=== PATIENT | male | born 1960 | race Caucasian/White ===

== ENCOUNTER 2016-12-26 16:26 | Emergency (ER) | payer OTHER ==
[~2016-12-26] VITALS: Ht 180.3 cm; Wt 88.5 kg
[2016-12-26] MEDS ORDERED: LORAZEPAM 1 MG TABLET ONE (16:46)
--- NOTE | 2016-12-26 16:50 | NUR ---
PT PRESENTS TO ER C/O "MULTIPLE SEIZURES TODAY; SHAKING A LOT" BUT REPORTS "MAYBE IT'S FROM ALCOHOL WITHDRAWAL". NO SEIZURE ACTIVITY OR WITHDRAWAL SYMPTOMS NOTED. SKIN WARM NONDIAPHORETIC. RESP EVEN UNLABORED. A/OX4. NAD NOTED. IN ER BED 17.
[2016-12-26 17:00] LABS: BASOPHILS % (AUTO) 0.6 % (0.0-2.0); EOSINOPHILS # (AUTO) 0.1 /CMM (0.0-0.7); EOSINOPHILS % (AUTO) 1.6 % (0.0-6.0); HEMATOCRIT 47 % (39-51); LYMPHOCYTES # (AUTO) 2.3 /CMM (0.8-4.8); MEAN CORPUSCULAR HEMOGLOBIN 31 PG (26.0-33.0); MEAN CORPUSCULAR HGB CONC 32 g/dl (31.0-36.0); MEAN CORPUSCULAR VOLUME 95 fL (80-96); MONOCYTES # (AUTO) 0.6 /CMM (0.1-1.30); MONOCYTES % (AUTO) 7.4 % (2.0-12.0); NEUTROPHILS # (AUTO) 5.2 /CMM (1.8-8.9); NEUTROPHILS % (AUTO) 62.4 % (43.0-81.0); PLATELET COUNT (AUTO) 261 /CMM (150-450); RDW COEFFICIENT OF VARIATION 13.6 (11.5-15.0); RED BLOOD CELL COUNT(AUTO) 4.93 MIL/uL (4.5-6.0); WHITE BLOOD COUNT (AUTO) 8.3 K/uL (4.3-11.0)
[2016-12-26] MEDS ORDERED: LORAZEPAM 1 MG TABLET PO ONE (17:00)
[2016-12-26 17:11] LABS: CALCIUM, SERUM 9.1 mg/dL (8.5-10.1); CARBON DIOXIDE 25 mmol/L (21-32); CHLORIDE 102 mmol/L (98-107); CREATININE 1.1 mg/dL (0.6-1.3); GFR 69 mL/min (>60); GLUCOSE 104 mg/dL (74-106); POTASSIUM 3.9 mmol/L (3.5-5.1); SODIUM SERUM 138 mmol/L (136-145); UREA NITROGEN, BLOOD 19 mg/dL (7-18)
--- NOTE | 2016-12-26 17:15 | NUR ---
PT IS MEDICALLY CLEARED BY , WILL INFORM PINKY TO EVALUATE WHEN SHE GETS HERE
[2016-12-26 17:16] LABS: ALANINE AMINOTRANSFERASE 37 U/L (12-78); ALBUMIN 3.8 g/dL (3.4-5.0); ALCOHOL, BLOOD 118 mg/dL (0-0); ALKALINE PHOSPHATASE 69 U/L (46-116); ASPARTATE AMINOTRANSFERASE 38 U/L (15-37); BILIRUBIN,DIRECT 0.1 mg/dL (0.0-0.2); BILIRUBIN,TOTAL 0.4 mg/dL (0.2-1.0); TOTAL PROTEIN, SERUM 7.8 g/dL (6.4-8.2)
[2016-12-26 17:17] LABS: ACETAMINOPHEN < 3 ug/ml (10-30); SALICYLATE < 2.0 mg/dL (2.8-20.0)
[2016-12-26 18:27] LABS: APPEARANCE,URINE Clear (CLEAR); BILIRUBIN,URINE SMALL (NEGATIVE); BLOOD, URINE Negative Ery/uL (NEGATIVE); COLOR,URINE Yellow (YELLOW); KETONES,URINE Trace (NEGATIVE); LEUKOCYTE ESTERASE ,URINE Negative (NEGATIVE); NITRITE, URINE Negative (NEGATIVE); PROTEIN,URINE 30 mg/dl (NEGATIVE); UGLUCOSE Negative (NEGATIVE); UROBILINOGEN,URINE 0.2 EU/dL (0.2)
[2016-12-26 18:38] LABS: RBC,URINE 0-2 /HPF (0-2)
[2016-12-26 18:39] LABS: ADD URINE CULTURE NO; BACTERIA,URINE Few /HPF (None Seen); CANNABINOID, URINE NEGATIVE (NEGATIVE); HYALINE CASTS, URINE Moderate /LPF (None Seen); MUCUS,URINE Many /LPF (None Seen); PHENCYCLIDINE SCREEN,URINE NEGATIVE (NEGATIVE); SQUAMOUS EPITHELIAL CELL,UR Few /HPF (None Seen)
--- NOTE | 2016-12-26 18:40 | NUR ---
RESTING QUIETLY, NAD NOTED.
--- NOTE | 2016-12-26 18:58 | NUR ---
PINKY MINE EXPLORATION ENGINEER AT BEDSIDE
--- NOTE | 2016-12-26 20:51 | NUR ---
RESTING QUIETLY, NAD NOTED.
[2016-12-26 21:18] VITALS: BP 116/68
--- NOTE | 2016-12-26 21:18 | NUR ---
ATTEMPTED TO CALL REPORT TO [facility] Addendum: 12/26/16 at 2123 by HFOX REPORT GIVEN TO PATSY HUNTLEY AT [facility] FOR TRANSFER
--- NOTE | 2016-12-26 21:44 | NUR ---
PT TRANSFERRED TO [facility] IN STABLE CONDITION VIA TAXI. NAD NOTED. TRANSFER PAPERWORK COMPLETED AND SIGNED, SENT WITH PT.
== END 2016-12-26 21:54 ==
LOC: ER 16:30
DX: R45.851 Suicidal ideations (principal); F10.10 Alcohol abuse, uncomplicated; I10 Essential (primary) hypertension; F41.9 Anxiety disorder, unspecified; F32.9 Major depressive disorder, single episode, unspecified; F17.200 Nicotine dependence, unspecified, uncomplicated; Z98.890 Other specified postprocedural states
CPT/HCPCS: 36415; 80048; 80076; 80305; 80329; 81001; 85025; 99285; A4606; G0480 ×2; Z7610; 81000-TC; G6039-TC

== ENCOUNTER 2017-01-02 15:49 | Emergency (ER) | payer OTHER ==
[~2017-01-02] VITALS: Ht 180.3 cm; Wt 88.5 kg
--- NOTE | 2017-01-02 15:55 | NUR ---
PT BIB SELF C/O SI AND DEPRESSION WITH PLAN TO OD ON ALCOHOL AND HIS MEDS. DENIES HI. NAD NOTED. DENIES PHYSICAL COMPLAINTS. IN ER BED 11.
[2017-01-02] MEDS ORDERED: LEVE500T9 PO (16:03)
[2017-01-02] MEDS ORDERED: DIAZ10TA4 PO (16:03)
[2017-01-02] MEDS ORDERED: LISI-607 PO (16:03)
[2017-01-02 16:19] LABS: BASOPHILS # (AUTO) 0.1 /CMM (0.0-0.2); BASOPHILS % (AUTO) 1.2 % (0.0-2.0); EOSINOPHILS % (AUTO) 0.3 % (0.0-6.0); HEMATOCRIT 47 % (39-51); HEMOGLOBIN 15.2 g/dL (13.5-17.5); LYMPHOCYTES # (AUTO) 1.6 /CMM (0.8-4.8); LYMPHOCYTES % (AUTO) 19.5 % (20.0-44.0); MEAN CORPUSCULAR HEMOGLOBIN 31 PG (26.0-33.0); MEAN CORPUSCULAR HGB CONC 33 g/dl (31.0-36.0); MEAN CORPUSCULAR VOLUME 94 fL (80-96); MONOCYTES # (AUTO) 0.9 /CMM (0.1-1.30); MONOCYTES % (AUTO) 10.7 % (2.0-12.0); NEUTROPHILS # (AUTO) 5.7 /CMM (1.8-8.9); NEUTROPHILS % (AUTO) 68.3 % (43.0-81.0); PLATELET COUNT (AUTO) 254 /CMM (150-450); RDW COEFFICIENT OF VARIATION 13.6 (11.5-15.0); RED BLOOD CELL COUNT(AUTO) 4.96 MIL/uL (4.5-6.0); WHITE BLOOD COUNT (AUTO) 8.3 K/uL (4.3-11.0)
[2017-01-02 16:29] LABS: APPEARANCE,URINE CLEAR (CLEAR); BILIRUBIN,URINE 1+ (NEGATIVE); BLOOD, URINE NEGATIVE Ery/uL (NEGATIVE); COLOR,URINE ORANGE (YELLOW); KETONES,URINE TRACE (NEGATIVE); LEUKOCYTE ESTERASE ,URINE NEGATIVE (NEGATIVE); NITRITE, URINE NEGATIVE (NEGATIVE); PH,URINE 6.5 (5.0-8.0); PROTEIN,URINE 1+ mg/dl (NEGATIVE); UGLUCOSE NEGATIVE (NEGATIVE)
[2017-01-02 16:40] LABS: CALCIUM, SERUM 8.6 mg/dL (8.5-10.1); CARBON DIOXIDE 30 mmol/L (21-32); CHLORIDE 100 mmol/L (98-107); CREATININE 0.9 mg/dL (0.6-1.3); GFR 88 mL/min (>60); GLUCOSE 111 mg/dL (74-106); POTASSIUM 3.3 mmol/L (3.5-5.1); SODIUM SERUM 138 mmol/L (136-145); UREA NITROGEN, BLOOD 11 mg/dL (7-18)
[2017-01-02 16:41] LABS: PHENCYCLIDINE SCREEN,URINE NEGATIVE (NEGATIVE)
[2017-01-02 16:43] LABS: CANNABINOID, URINE POSITIVE (NEGATIVE)
[2017-01-02 16:45] LABS: ADD URINE CULTURE NO; BACTERIA,URINE None seen /HPF (None Seen); RBC,URINE NONE SEEN /HPF (0-2); SQUAMOUS EPITHELIAL CELL,UR Few /HPF (None Seen); WBC,URINE 0-2 /HPF (0-3)
[2017-01-02 16:46] LABS: ACETAMINOPHEN 0 ug/ml (10-30); ALANINE AMINOTRANSFERASE 51 U/L (12-78); ALBUMIN 4.3 g/dL (3.4-5.0); ALCOHOL, BLOOD < 3 mg/dL (0-0); ALKALINE PHOSPHATASE 92 U/L (46-116); ASPARTATE AMINOTRANSFERASE 76 U/L (15-37); BILIRUBIN,DIRECT 0.2 mg/dL (0.0-0.2); BILIRUBIN,TOTAL 1.5 mg/dL (0.2-1.0); SALICYLATE 0.6 mg/dL (2.8-20.0); TOTAL PROTEIN, SERUM 8.1 g/dL (6.4-8.2)
--- NOTE | 2017-01-02 17:08 | NUR ---
CALLED PINKY; ETA 1 HR
[2017-01-02] MEDS ORDERED: LORAZEPAM 1 MG TABLET PO ONE ×2 (17:30→19:30)
[2017-01-02] MEDS ORDERED: LORAZEPAM 1 MG TABLET ONE ×2 (17:38→19:18)
--- NOTE | 2017-01-02 17:42 | NUR ---
RESTING QUIETLY, NAD NOTED. ALL NEEDS ATTENDED TO.
--- NOTE | 2017-01-02 17:44 | NUR ---
CALLED FOR FOOD TRAY
--- NOTE | 2017-01-02 19:05 | NUR ---
CALLED INTAKE AT [facility]; PER ÁLVARO, PT MUST BE TRANSPORTED BY AMBULANCE, NOT TAXI.
--- NOTE | 2017-01-02 19:08 | NUR ---
CALLED TRANSPORT ETA 30
[2017-01-02 19:10] VITALS: BP 150/104
--- NOTE | 2017-01-02 19:11 | NUR ---
REPORT GIVEN TO LORAINE HUNTLEY AT [facility] FOR TRANSFER
--- NOTE | 2017-01-02 19:43 | NUR ---
PT TRANSPORTED TO [facility] IN STABLE CONDITION. Written and verbal after care instructions given. Patient verbalizes understanding of instruction.
== END 2017-01-02 19:46 | disposition short-term general hospital (02) ==
LOC: ER 15:51
DX: R45.851 Suicidal ideations (principal); F15.10 Other stimulant abuse, uncomplicated; F32.9 Major depressive disorder, single episode, unspecified; F41.9 Anxiety disorder, unspecified; I10 Essential (primary) hypertension; F10.20 Alcohol dependence, uncomplicated; F17.210 Nicotine dependence, cigarettes, uncomplicated
CPT/HCPCS: 36415; 80048; 80076; 80305; 80329; 81001; 85025; 99285; 99406; A4606; G0480 ×2; Z7610; 81000-TC; G6039-TC

== ENCOUNTER 2017-09-23 20:47 | Emergency (ER) | payer OTHER ==
[~2017-09-23] VITALS: Ht 180.3 cm; Wt 95.3 kg
[~2017-09-23 20:47] MED LIST: DIAZ10TA4 PO; LEVE500T9 PO; LISI-607 PO
--- NOTE | 2017-09-23 21:03 | NUR ---
PT AMBULATORY TO ER BED 9. PT STATES "WAS TURNED AWAY AT [facility]; GOT ANXIOUS. HAVING SUICIDAL THOUGHTS". PT DENIES HAVING A PLAN. PT PLACED ON SEASONAL GREENERY BUNDLER. VSS/RESP EVEN UNLABORED/NAD NOTED/SKIN WARM AND DRY/DENIES N-V-D/AOX4. AWAITING MD GAR.
[2017-09-23 21:59] LABS: BASOPHILS # (AUTO) 0.1 /CMM (0.0-0.2); BASOPHILS % (AUTO) 0.8 % (0.0-2.0); EOSINOPHILS # (AUTO) 0.2 /CMM (0.0-0.7); EOSINOPHILS % (AUTO) 2.4 % (0.0-6.0); HEMATOCRIT 45 % (39-51); LYMPHOCYTES # (AUTO) 2.4 /CMM (0.8-4.8); LYMPHOCYTES % (AUTO) 24.1 % (20.0-44.0); MEAN CORPUSCULAR HEMOGLOBIN 30 PG (26.0-33.0); MEAN CORPUSCULAR HGB CONC 33 g/dl (31.0-36.0); MEAN CORPUSCULAR VOLUME 90 fL (80-96); MONOCYTES # (AUTO) 0.9 /CMM (0.1-1.30); NEUTROPHILS # (AUTO) 6.3 /CMM (1.8-8.9); NEUTROPHILS % (AUTO) 63.7 % (43.0-81.0); PLATELET COUNT (AUTO) 222 /CMM (150-450); RDW COEFFICIENT OF VARIATION 15.2 (11.5-15.0); RED BLOOD CELL COUNT(AUTO) 5.01 MIL/uL (4.5-6.0); WHITE BLOOD COUNT (AUTO) 9.9 K/uL (4.3-11.0)
[2017-09-23 22:02] LABS: CALCIUM, SERUM 9.2 mg/dL (8.5-10.1); CARBON DIOXIDE 28 mmol/L (21-32); CHLORIDE 103 mmol/L (98-107); GLUCOSE 93 mg/dL (74-106); SODIUM SERUM 139 mmol/L (136-145); UREA NITROGEN, BLOOD 22 mg/dL (7-18)
[2017-09-23 22:04] LABS: APPEARANCE,URINE CLEAR (CLEAR); BILIRUBIN,URINE NEGATIVE (NEGATIVE); BLOOD, URINE NEGATIVE Ery/uL (NEGATIVE); COLOR,URINE YELLOW (YELLOW); KETONES,URINE NEGATIVE (NEGATIVE); LEUKOCYTE ESTERASE ,URINE NEGATIVE (NEGATIVE); NITRITE, URINE NEGATIVE (NEGATIVE); PH,URINE 5.5 (5.0-8.0); PROTEIN,URINE NEGATIVE (NEGATIVE); UGLUCOSE NEGATIVE (NEGATIVE); UROBILINOGEN,URINE 0.2 EU/dL (0.2)
[2017-09-23 22:08] LABS: ACETAMINOPHEN < 2 ug/ml (10-30); ALANINE AMINOTRANSFERASE 26 U/L (12-78); ALBUMIN 3.7 g/dL (3.4-5.0); ALKALINE PHOSPHATASE 95 U/L (46-116); ASPARTATE AMINOTRANSFERASE 20 U/L (15-37); BILIRUBIN,DIRECT 0.1 mg/dL (0.0-0.2); BILIRUBIN,TOTAL 0.3 mg/dL (0.2-1.0); SALICYLATE 2.2 mg/dL (2.8-20.0); TOTAL PROTEIN, SERUM 8.1 g/dL (6.4-8.2)
[2017-09-23 22:09] LABS: ALCOHOL, BLOOD 0 mg/dL (0-0)
[2017-09-23] MEDS ORDERED: LORAZEPAM 1 MG TABLET ONE (22:48)
[2017-09-23] MEDS: LORAZEPAM 1 MG TABLET PO ONE (22:49)
--- NOTE | 2017-09-23 23:24 | NUR ---
CALLED [facility] FOR PSYCH EVAL.
--- NOTE | 2017-09-23 23:52 | NUR ---
PT GIVEN FOOD AND A DRINK. PT ALERT/ORIENTED, VSS.
--- NOTE | 2017-09-24 02:06 | NUR ---
PT RESTING QUIETLY, VSS. AROUSES TO VOICE.
--- NOTE | 2017-09-24 06:10 | NUR ---
PT RESTING QUIETLY, VSS. AROUSES TO VOICE.
--- NOTE | 2017-09-24 06:41 | NUR ---
Patient discharged to home in stable condition. Written and verbal after care instructions given. Patient verbalizes understanding of instruction. Patient ambulatory with a steady gait.
[2017-09-24 06:44] VITALS: BP 109/61
== END 2017-09-24 06:44 | disposition home or self-care (01) ==
LOC: ER 20:48
DX: F32.9 Major depressive disorder, single episode, unspecified (principal); F41.9 Anxiety disorder, unspecified; I10 Essential (primary) hypertension; F17.200 Nicotine dependence, unspecified, uncomplicated; F15.10 Other stimulant abuse, uncomplicated; F10.10 Alcohol abuse, uncomplicated; Z98.890 Other specified postprocedural states
CPT/HCPCS: 36415; 80048-TC; 80076-TC; 80305; 81000-TC; 85025-TC; A4606; G0480; Z7610

== ENCOUNTER 2017-12-19 00:32 | Emergency (ER) | payer OTHER ==
[~2017-12-19] VITALS: Ht 180.3 cm; Wt 90.7 kg
--- NOTE | 2017-12-19 00:40 | NUR ---
PT BIB RA WITH A C/O MID STERNAL CP THAT RADIATES DOWN THE RT ARM. PT IS C/O ANXIETY AND HAS A HX OF ANXIETY. PT AMBULATED TO BED #12 WITH A STEADY GAIT.
--- NOTE | 2017-12-19 01:17 | NUR ---
IV STARTED AND BLOOD DRAWN. SAMPLES SENT TO LAB.
[2017-12-19 01:27] LABS: BASOPHILS # (AUTO) 0.1 /CMM (0.0-0.2); BASOPHILS % (AUTO) 0.4 % (0.0-2.0); EOSINOPHILS % (AUTO) 0.2 % (0.0-6.0); HEMATOCRIT 50 % (39-51); HEMOGLOBIN 16.7 g/dL (13.5-17.5); LYMPHOCYTES # (AUTO) 1.8 /CMM (0.8-4.8); LYMPHOCYTES % (AUTO) 11.6 % (20.0-44.0); MEAN CORPUSCULAR HEMOGLOBIN 30 PG (26.0-33.0); MEAN CORPUSCULAR HGB CONC 34 g/dl (31.0-36.0); MEAN CORPUSCULAR VOLUME 90 fL (80-96); MONOCYTES # (AUTO) 0.7 /CMM (0.1-1.30); MONOCYTES % (AUTO) 4.7 % (2.0-12.0); NEUTROPHILS # (AUTO) 12.7 /CMM (1.8-8.9); NEUTROPHILS % (AUTO) 83.1 % (43.0-81.0); PLATELET COUNT (AUTO) 294 /CMM (150-450); RDW COEFFICIENT OF VARIATION 14.3 (11.5-15.0); RED BLOOD CELL COUNT(AUTO) 5.56 MIL/uL (4.5-6.0); WHITE BLOOD COUNT (AUTO) 15.3 K/uL (4.3-11.0)
[2017-12-19 01:42] LABS: INR 0.97 (0.87-1.13)
[2017-12-19 02:21] LABS: CALCIUM, SERUM 9.2 mg/dL (8.5-10.1); CARBON DIOXIDE 19 mmol/L (21-32); CHLORIDE 99 mmol/L (98-107); CREATININE 2.4 mg/dL (0.6-1.3); GLUCOSE 132 mg/dL (74-106); POTASSIUM 4.1 mmol/L (3.5-5.1); SODIUM SERUM 135 mmol/L (136-145); UREA NITROGEN, BLOOD 33 mg/dL (7-18)
[2017-12-19 02:29] LABS: TROPONIN I < 0.017 ng/mL (0.00-0.056)
--- NOTE | 2017-12-19 02:50 | NUR ---
Patient discharged to home in stable condition. Written and verbal after care instructions given. Patient verbalizes understanding of instruction. PT REC'D HOMELESS USP INFORMATION AND WAS TOLD HE COULD WAIT IN THE LOBBY FOR STOCK HANDLER TO COME IN. VSS. PT AMBULATED OUT WITH A STEADY GAIT. RESP EVEN AND UNLABORED.
[2017-12-19 03:07] VITALS: BP 115/65
== END 2017-12-19 02:58 | disposition home or self-care (01) ==
LOC: ER 00:33
DX: R07.89 Other chest pain (principal); F19.10 Other psychoactive substance abuse, uncomplicated; I10 Essential (primary) hypertension; F41.9 Anxiety disorder, unspecified; F32.9 Major depressive disorder, single episode, unspecified; F17.200 Nicotine dependence, unspecified, uncomplicated; Z60.2 Problems related to living alone
CPT/HCPCS: 36415; 71045-TC; 80048-TC; 80305; 84484-TC; 85025-TC; 85730-TC; A4606; G0480; Z7610

== ENCOUNTER 2018-01-02 17:24 | Emergency (ER) | payer OTHER ==
[~2018-01-02] VITALS: Ht 177.8 cm; Wt 68.0 kg
--- NOTE | 2018-01-02 19:00 | NUR ---
57-year-old Male C/O anxiety and suicidal ideation, states he want so tOD on his medication and alcohol. patient ambulated to er bed, skin warm and dry, resp even and unlabored. patient placed on court monitor. skin warm and dry, resp even and unlabored. awaiting orders from provider, will continue to monitor
[2018-01-02 19:25] LABS: CREATININE 2.8 mg/dL (0.6-1.3)
--- NOTE | 2018-01-02 19:30 | NUR ---
urine sample obtained and sent to lab
[2018-01-02 19:31] LABS: BASOPHILS # (AUTO) 0.1 /CMM (0.0-0.2); BASOPHILS % (AUTO) 0.5 % (0.0-2.0); EOSINOPHILS % (AUTO) 1.4 % (0.0-6.0); HEMATOCRIT 46 % (39-51); LYMPHOCYTES # (AUTO) 2.3 /CMM (0.8-4.8); LYMPHOCYTES % (AUTO) 15.3 % (20.0-44.0); MEAN CORPUSCULAR HGB CONC 35 g/dl (31.0-36.0); MEAN CORPUSCULAR VOLUME 90 fL (80-96); MONOCYTES # (AUTO) 0.9 /CMM (0.1-1.30); MONOCYTES % (AUTO) 6.2 % (2.0-12.0); NEUTROPHILS # (AUTO) 11.6 /CMM (1.8-8.9); NEUTROPHILS % (AUTO) 76.6 % (43.0-81.0); PLATELET COUNT (AUTO) 321 /CMM (150-450); RDW COEFFICIENT OF VARIATION 13.9 (11.5-15.0); RED BLOOD CELL COUNT(AUTO) 5.17 MIL/uL (4.5-6.0); WHITE BLOOD COUNT (AUTO) 15.1 K/uL (4.3-11.0)
[2018-01-02 19:37] LABS: ALANINE AMINOTRANSFERASE 33 U/L (12-78); ALCOHOL, BLOOD 179 mg/dL (0-0); ALKALINE PHOSPHATASE 84 U/L (46-116); ASPARTATE AMINOTRANSFERASE 27 U/L (15-37); BILIRUBIN,TOTAL 0.2 mg/dL (0.2-1.0); CARBON DIOXIDE 19 mmol/L (21-32); CHLORIDE 99 mmol/L (98-107); GLUCOSE 120 mg/dL (74-106); POTASSIUM 4.2 mmol/L (3.5-5.1); SODIUM SERUM 135 mmol/L (136-145); TOTAL PROTEIN, SERUM 8.3 g/dL (6.4-8.2); UREA NITROGEN, BLOOD 31 mg/dL (7-18)
[2018-01-02 19:39] LABS: SALICYLATE < 0.2 mg/dL (2.8-20.0)
[2018-01-02 19:40] LABS: ACETAMINOPHEN < 2 ug/ml (10-30)
[2018-01-02 19:44] LABS: CALCIUM, SERUM 9.3 mg/dL (8.5-10.1)
[2018-01-02 20:19] LABS: APPEARANCE,URINE Clear (CLEAR); BILIRUBIN,URINE Negative (NEGATIVE); BLOOD, URINE Negative Ery/uL (NEGATIVE); COLOR,URINE Yellow (YELLOW); KETONES,URINE Negative (NEGATIVE); LEUKOCYTE ESTERASE ,URINE Negative (NEGATIVE); NITRITE, URINE Negative (NEGATIVE); PROTEIN,URINE Negative (NEGATIVE); UGLUCOSE Negative (NEGATIVE); UROBILINOGEN,URINE 0.2 EU/dL (0.2)
--- NOTE | 2018-01-03 00:01 | NUR ---
patient resting in er bed, no distress noted, will continue to monitor
--- NOTE | 2018-01-03 01:42 | NUR ---
art at bed side for psych eval
[2018-01-03 02:17] VITALS: BP 135/74
== END 2018-01-03 02:36 | disposition home or self-care (01) ==
LOC: ER 17:25
DX: F10.129 Alcohol abuse with intoxication, unspecified (principal); I10 Essential (primary) hypertension; F41.9 Anxiety disorder, unspecified; F32.9 Major depressive disorder, single episode, unspecified; F17.200 Nicotine dependence, unspecified, uncomplicated; Z60.2 Problems related to living alone
CPT/HCPCS: 36415; 80048-TC; 80076-TC; 80305; 81000-TC; 85025-TC; A4606; G0480; Z7610

== ENCOUNTER 2018-05-13 16:21 | Emergency (ER) | payer OTHER ==
[~2018-05-13] VITALS: Ht 180.3 cm; Wt 99.8 kg
[2018-05-13 17:10] LABS: BASOPHILS # (AUTO) 0.1 /CMM (0.0-0.2); BASOPHILS % (AUTO) 0.8 % (0.0-2.0); EOSINOPHILS % (AUTO) 1.9 % (0.0-6.0); HEMATOCRIT 47 % (39-51); HEMOGLOBIN 15.7 g/dL (13.5-17.5); LYMPHOCYTES # (AUTO) 2.3 /CMM (0.8-4.8); LYMPHOCYTES % (AUTO) 24.7 % (20.0-44.0); MEAN CORPUSCULAR HEMOGLOBIN 30 PG (26.0-33.0); MEAN CORPUSCULAR HGB CONC 33 g/dl (31.0-36.0); MEAN CORPUSCULAR VOLUME 90 fL (80-96); MONOCYTES # (AUTO) 0.8 /CMM (0.1-1.30); MONOCYTES % (AUTO) 8.3 % (2.0-12.0); NEUTROPHILS # (AUTO) 5.9 /CMM (1.8-8.9); NEUTROPHILS % (AUTO) 64.3 % (43.0-81.0); PLATELET COUNT (AUTO) 244 /CMM (150-450); RDW COEFFICIENT OF VARIATION 13.2 (11.5-15.0); RED BLOOD CELL COUNT(AUTO) 5.29 MIL/uL (4.5-6.0); WHITE BLOOD COUNT (AUTO) 9.3 K/uL (4.3-11.0)
--- NOTE | 2018-05-13 17:10 | NUR ---
BIB RA AMBULATORY, [facility] 1 WEEK OF CONFINEMENT, STILL FEELING SUICIDAL, PLAN TO OD ON PILLS. PT STABLE CALM & COOPERATIVE @ THIS MOMENT.
[2018-05-13 17:24] LABS: ALANINE AMINOTRANSFERASE 29 U/L (12-78); ALBUMIN 4.1 g/dL (3.4-5.0); ALCOHOL, BLOOD 114 mg/dL (0-0); ALKALINE PHOSPHATASE 78 U/L (46-116); ASPARTATE AMINOTRANSFERASE 24 U/L (15-37); BILIRUBIN,DIRECT 0.1 mg/dL (0.0-0.2); BILIRUBIN,TOTAL 0.3 mg/dL (0.2-1.0); CALCIUM, SERUM 9.4 mg/dL (8.5-10.1); CARBON DIOXIDE 23 mmol/L (21-32); CHLORIDE 99 mmol/L (98-107); CREATININE 1.9 mg/dL (0.6-1.3); GLUCOSE 96 mg/dL (74-106); POTASSIUM 3.6 mmol/L (3.5-5.1); SODIUM SERUM 132 mmol/L (136-145); TOTAL PROTEIN, SERUM 8.1 g/dL (6.4-8.2); UREA NITROGEN, BLOOD 25 mg/dL (7-18)
[2018-05-13 17:25] LABS: ACETAMINOPHEN > 2 ug/ml (10-30); SALICYLATE 2.2 mg/dL (2.8-20.0)
--- NOTE | 2018-05-13 19:00 | NUR ---
Patient is resting comfortably in bed with eyes closed. Easily aroused. VSS. NAD NOTED @ THIS TIME. AWAITING EVAL WITH CRISIS TEAM.
--- NOTE | 2018-05-13 21:00 | NUR ---
MODE, CRISIS RN @ BS FOR EVAL.
[2018-05-13 22:30] LABS: APPEARANCE,URINE CLEAR (CLEAR); BILIRUBIN,URINE NEGATIVE (NEGATIVE); BLOOD, URINE NEGATIVE Ery/uL (NEGATIVE); COLOR,URINE YELLOW (YELLOW); KETONES,URINE TRACE (NEGATIVE); LEUKOCYTE ESTERASE ,URINE NEGATIVE (NEGATIVE); NITRITE, URINE NEGATIVE (NEGATIVE); PH,URINE 5.5 (5.0-8.0); PROTEIN,URINE 2+ mg/dl (NEGATIVE); UGLUCOSE NEGATIVE (NEGATIVE); UROBILINOGEN,URINE 0.2 EU/dL (0.2)
[2018-05-13 22:51] LABS: BACTERIA,URINE Moderate /HPF (None Seen); RBC,URINE 0-2 /HPF (0-2); SQUAMOUS EPITHELIAL CELL,UR Rare /HPF (None Seen); WBC,URINE 0-2 /HPF (0-3)
[2018-05-13 22:52] LABS: CALCIUM OXALATE CRYSTALS,UR Moderate /HPF (None Seen)
--- NOTE | 2018-05-13 23:03 | NUR ---
Patient is resting comfortably in bed with eyes closed. Easily aroused. VSS. AWAITING TRANSFER TO PSYCH UNIT.
--- NOTE | 2018-05-13 23:54 | NUR ---
REPORT GIVEN TO YUKO CHUN FOR ERIC.
--- NOTE | 2018-05-14 00:40 | NUR ---
RESTING WITH NO S/S OF DISTRESS NOTED. GIVEN JUICE AND SANDWICH. UPDATED OF PLAN OF CARE.
--- NOTE | 2018-05-14 01:02 | NUR ---
CALLED [facility] RUN #: [id number] ETA: [phone]
--- NOTE | 2018-05-14 01:49 | NUR ---
REPORT GIVEN TO JAZMIN/YUKO [facility].
--- NOTE | 2018-05-14 02:08 | NUR ---
REPORT GIVEN TO MANEUL/EMT MED RESPONSE.
[2018-05-14 02:09] VITALS: BP 122/69
== END 2018-05-14 02:18 ==
LOC: ER 16:22
DX: R45.851 Suicidal ideations (principal); I44.4 Left anterior fascicular block; F41.9 Anxiety disorder, unspecified; F32.9 Major depressive disorder, single episode, unspecified; F17.200 Nicotine dependence, unspecified, uncomplicated; Z98.890 Other specified postprocedural states; Z60.2 Problems related to living alone; Z79.899 Other long term (current) drug therapy
CPT/HCPCS: 36415; 80048; 80076; 80305; 80329; 81001; 85025; 87086; 93005; 99285; A4606; G0480 ×2; Z7610; 81000-TC

== ENCOUNTER 2019-01-01 16:15 | Emergency (ER) | payer OTHER ==
[~2019-01-01] VITALS: Ht 177.8 cm; Wt 95.3 kg
--- NOTE | 2019-01-01 16:23 | NUR ---
BIBRA 860 FOR SUICIDAL IDEATION WITH A PLAN TO OD WITH PILLS, PT WAS JUST DISCHARGED FROM [facility]. DENIES HI. SUICIDE PRECAUTIONS IMPLEMENTED. TO ER BED 6, MADE COMFORTABLE AND READY FOR EVAL.
[2019-01-01 16:55] LABS: BASOPHILS % (AUTO) 0.3 % (0.0-2.0); HEMATOCRIT 46 % (39-51); HEMOGLOBIN 15.5 g/dL (13.5-17.5); LYMPHOCYTES # (AUTO) 2.5 /CMM (0.8-4.8); LYMPHOCYTES % (AUTO) 28.1 % (20.0-44.0); MEAN CORPUSCULAR HGB CONC 34 g/dl (31.0-36.0); MEAN CORPUSCULAR VOLUME 93 fL (80-96); MONOCYTES # (AUTO) 0.5 /CMM (0.1-1.30); MONOCYTES % (AUTO) 5.6 % (2.0-12.0); NEUTROPHILS # (AUTO) 5.8 /CMM (1.8-8.9); PLATELET COUNT (AUTO) 243 /CMM (150-450); RED BLOOD CELL COUNT(AUTO) 4.95 MIL/uL (4.5-6.0); WHITE BLOOD COUNT (AUTO) 8.9 K/uL (4.3-11.0)
[2019-01-01 17:06] LABS: ALANINE AMINOTRANSFERASE 26 U/L (12-78); ALBUMIN 3.7 g/dL (3.4-5.0); ALCOHOL, BLOOD 209 mg/dL (0-0); ALKALINE PHOSPHATASE 83 U/L (46-116); ASPARTATE AMINOTRANSFERASE 21 U/L (15-37); BILIRUBIN,TOTAL 0.2 mg/dL (0.2-1.0); CALCIUM, SERUM 9.2 mg/dL (8.5-10.1); CARBON DIOXIDE 26 mmol/L (21-32); CHLORIDE 106 mmol/L (98-107); CREATININE 0.9 mg/dL (0.6-1.3); GLUCOSE 113 mg/dL (74-106); POTASSIUM 3.8 mmol/L (3.5-5.1); SODIUM SERUM 143 mmol/L (136-145); TOTAL PROTEIN, SERUM 7.8 g/dL (6.4-8.2); UREA NITROGEN, BLOOD 15 mg/dL (7-18)
[2019-01-01 17:12] LABS: APPEARANCE,URINE Clear (CLEAR); BILIRUBIN,URINE Negative (NEGATIVE); BLOOD, URINE Negative Ery/uL (NEGATIVE); COLOR,URINE Yellow (YELLOW); KETONES,URINE Negative (NEGATIVE); LEUKOCYTE ESTERASE ,URINE Negative (NEGATIVE); NITRITE, URINE Negative (NEGATIVE); PROTEIN,URINE Negative (NEGATIVE); UGLUCOSE Negative (NEGATIVE); UROBILINOGEN,URINE 0.2 EU/dL (0.2)
[2019-01-01 17:17] LABS: SALICYLATE 2.2 mg/dL (2.8-20.0)
[2019-01-01 17:18] LABS: ACETAMINOPHEN < 5 ug/ml (10-30)
--- NOTE | 2019-01-01 18:07 | NUR ---
Patient is resting comfortably in bed with eyes closed. Easily aroused. VSS
--- NOTE | 2019-01-01 20:46 | NUR ---
PT SLEEPING COMFORTABLY IN BED. EASILY AROUSED. NO COMPLAINTS AT THIS TIME. VSS
--- NOTE | 2019-01-01 22:31 | NUR ---
Patient is resting comfortably in bed with eyes closed. Easily aroused. VSS
--- NOTE | 2019-01-01 22:40 | NUR ---
CALLED JOHNNY HAWKINS FOR PSYCH EVAL.
--- NOTE | 2019-01-02 00:16 | NUR ---
CALLED [facility] FOR S TRANSPORT TO [facility]. ETA 0110, TRACKING NUMBER [id number]
--- NOTE | 2019-01-02 00:41 | NUR ---
REPORT [facility]AD[facility] [phone] FOR PT VOLUNTARY ADMISSION TO UNIT 1, ACCEPTED BY DR. QUEZADA. PT RESP EVEN & UNLABORED, DENIES ANY PAIN, CALM & COOPERATIVE AT THIS TIME W/ NAD NOTED. ETA AMBULNZ 0110.
--- NOTE | 2019-01-02 01:10 | NUR ---
GAVE REPORT TO LOIDA Stanley FOR TRANSPORTATION ERIC
[2019-01-02 01:24] VITALS: BP 123/70
== END 2019-01-02 01:24 ==
LOC: ER 16:19
DX: F10.129 Alcohol abuse with intoxication, unspecified (principal); R45.851 Suicidal ideations; F31.9 Bipolar disorder, unspecified; F25.9 Schizoaffective disorder, unspecified; F41.9 Anxiety disorder, unspecified; F17.200 Nicotine dependence, unspecified, uncomplicated; Y90.5 Blood alcohol level of 100-119 mg/100 ml; Z98.890 Other specified postprocedural states; Z04.6 Encounter for general psychiatric examination, requested by authority; Z60.2 Problems related to living alone
CPT/HCPCS: 36415; 80048; 80076; 80305; 80307 ×2; 80329; 81001; 85025; 99285; G0480; 81000-TC

== ENCOUNTER 2020-12-07 06:24 | Emergency (ER) | payer OTHER ==
[~2020-12-07] VITALS: Ht 180.3 cm; Wt 97.5 kg
[~2020-12-07 06:24] MED LIST changes: -LISI-607 PO; +LISI-768 PO
--- NOTE | 2020-12-07 06:31 | NUR ---
URINE COLLECTED, CALLED LAB FOR BUSINESS DEVELOPMENT DIRECTOR
--- NOTE | 2020-12-07 06:34 | NUR ---
PT BIBSELF C/O SUICIDAL IDEATION WITH PLAN TO OVERDOSE. PT AAOX4, CALM AND COOPERATIVE. VITAL SIGNS STABLE. RESPIRATIONS EVEN AND UNLABORED. SKIN WARM AND INTACT. AMBULATORY WITH STEADY GAIT. NO ACUTE DISTRESS NOTED AT THIS TIME. SUICIDAL PRECAUTIONS INITIATED. PT PLACED IN GOWN, BELONGINGS COLLECTED AND LOCKED IN PATIENT LOCKER. SITTER AT BEDSIDE. WILL CONTINUE TO MONITOR
--- NOTE | 2020-12-07 07:08 | NUR ---
MANAGER OF TRAINING AT BEDSIDE FOR BLOOD DRAW
[2020-12-07 07:31] LABS: BASOPHILS % (AUTO) 0.3 % (0.0-2.0); EOSINOPHILS % (AUTO) 0.6 % (0.0-6.0); HEMATOCRIT 45 % (39-51); HEMOGLOBIN 15.1 g/dL (13.5-17.5); LYMPHOCYTES # (AUTO) 2.4 /CMM (0.8-4.8); LYMPHOCYTES % (AUTO) 21.6 % (20.0-44.0); MEAN CORPUSCULAR HGB CONC 33 g/dl (31.0-36.0); MEAN CORPUSCULAR VOLUME 95 fL (80-96); MONOCYTES # (AUTO) 1.1 /CMM (0.1-1.30); MONOCYTES % (AUTO) 9.6 % (2.0-12.0); NEUTROPHILS # (AUTO) 7.6 /CMM (1.8-8.9); NEUTROPHILS % (AUTO) 67.9 % (43.0-81.0); PLATELET COUNT (AUTO) 210 /CMM (150-450); RED BLOOD CELL COUNT(AUTO) 4.79 MIL/uL (4.5-6.0); WHITE BLOOD COUNT (AUTO) 11.3 K/uL (4.3-11.0)
[2020-12-07 07:38] LABS: BILIRUBIN,URINE NEGATIVE (NEGATIVE); COLOR,URINE YELLOW (YELLOW); LEUKOCYTE ESTERASE ,URINE NEGATIVE (NEGATIVE); NITRITE, URINE NEGATIVE (NEGATIVE); PROTEIN,URINE NEGATIVE (NEGATIVE); UGLUCOSE NEGATIVE (NEGATIVE); UROBILINOGEN,URINE 0.2 EU/dL (0.2)
--- NOTE | 2020-12-07 08:02 | NUR ---
COVID SWAB SENT. PATIENT IS AA/OX4, BREATHING EVEN AND UNLABORED, NO SOB NOTED.
[2020-12-07 08:03] LABS: CALCIUM, SERUM 8.2 mg/dL (8.5-10.1); CARBON DIOXIDE 24 mmol/L (21-32); CHLORIDE 102 mmol/L (98-107); CREATININE 1.1 mg/dL (0.6-1.3); GLUCOSE 116 mg/dL (74-106); POTASSIUM 3.6 mmol/L (3.5-5.1); SODIUM SERUM 135 mmol/L (136-145); UREA NITROGEN, BLOOD 19 mg/dL (7-18)
[2020-12-07 08:09] LABS: ALANINE AMINOTRANSFERASE 40 U/L (12-78); ALBUMIN 3.8 g/dL (3.4-5.0); ALKALINE PHOSPHATASE 74 U/L (46-116); ASPARTATE AMINOTRANSFERASE 51 U/L (15-37); BILIRUBIN,DIRECT 0.2 mg/dL (0.0-0.2); TOTAL PROTEIN, SERUM 7.8 g/dL (6.4-8.2)
[2020-12-07 08:13] LABS: ACETAMINOPHEN < 2 ug/ml (10-30); ALCOHOL, BLOOD < 3 mg/dL (0-0)
[2020-12-07 08:45] LABS: BACTERIA,URINE Rare /HPF (None Seen); RBC,URINE NONE SEEN /HPF (0-2); SQUAMOUS EPITHELIAL CELL,UR Rare /HPF (None Seen); WBC,URINE 0-2 /HPF (0-3)
--- NOTE | 2020-12-07 11:19 | NUR ---
"SS Consult: SS Consult for Homelessness and SI with a plan. The pt. is a 60-year old male. CHRISTOS met with pt. bedside in ED. The pt. is alert & oriented x 4. The pt. appears unkempt. SW assessed SI. Pt. stated that he is actively suicidal with plan to OD on drugs and ETOH. Patient stated that he has been diagnosed with Schizoaffective disorder in the past. Pt. stated he is not on psychotropic medication at the moment. Patient stated that he currently has visual hallucinations where he sees black spots and believes he sees people walking by. CHRISTOS offered pt. voluntary psychiatric placement and pt. is agreeable. CHRISTOS assessed pt.s living situation. Pt. stated that he was living at his friends trailer. However, per pt. this friend is a Meth user. Per pt. his fiend convinced him to try Meth and Cannabinoids. Per pt. he has not slept since Sunday due to drug use. CHRISTOS provided pt. with drug addiction resources and pt. accepted them. Pt. stated that his health clinician, Matilda Butts [phone] is his support system. Pt. denies HI. Pt. is ambulatory. Pt. denies receiving financial assistance. Plan: CHRISTOS referred pt. to [facility] [[address] [place] [address] ] for inpatient psychiatric treatment. Pt. signed homeless waiver and it was placed in the pt.s chart. CHRISTOS provided pt. with the following homeless and addiction resources and pt. accepted them: Substance Abuse resources provided included: [facility] Substance Abuse Self-Helpline (SAS) ; CRI -HELP 75201 Count Includes [facility]. [place] [address] ; [facility] 65456 [facility] [address] ; [facility] Rehabilitation Program 21882 [facility] [address] ; [facility] [address] [facility] [address] ; [facility] 5207 [facility] [address] ; [facility] [address] [facility] [phone] ; [facility] Substance Abuse Helpline(SAS)-[facility] ; [facility] ; [facility] [place]; [facility] [place]; Cri-Help [place]; I-ADARP Inter Agency Drug Abuse Recovery Juan Manuel Neff; [facility] Sylst. vincent's [place]; [facility] Sylst. vincent's [place]; [facility] T[place]; [facility]. [place]; Alcoholics Anonymous -SFV; Kt-Igad-Fkzynbt ; Marijuana Anonymous -SFV; Narcotics Anonymous www.na.org; Year-round shelters: [place] [facility] [address] [place], [place] [phone] ; [facility] [address] [place] [address]; [facility] Qwgpkgc1323 [facility] [address] Winter Shelters: Aliya Jj Provider: [employer] [facility] [place] Address: [address] [place], [address] # of Beds: 47 Population Served: [facility] 6 | [facility] Jenniffer Grace Kempner Provider: Home at Last Address: [address], [address] # of Beds: 66 Population Served: Per Webshoz Kempner Provider: First to Serve Address: [address] [facility], [address] # of Beds: 56 Population Served: Per Jj Provider: SSClaritza/MsJorgito Marie[facility] House Address: [address] [facility], [address] # of Beds: 49 Population Served: Coed SPA 8 | [place] Carmen Jj Provider: First to Serve Address: [address] [place], [address] # of Beds: 37 Population Served: Coed Hygiene: [facility]: [address] [place] ; [facility] [address] [facility] ; [facility] [address], [place] . Food Resources: [place] [facility] at [facility]- 5702 [facility]; Meet Each Need with Dignity ([facility]) [address] [facility]; [facility] Food Pantry 8591 [facility]; [facility] 7728 [facility] Er. Mental Health resources provided: [facility] [address] [place], [place] [address] ; [facility] Mental Health Cedar[employer] Inc[employer] [address]188 [facility] UN[address] 2, [place], [place] [phone] ; [facility] [address]56 [facility] [place], [place] [phone] ; [facility] [place], [place] [phone] Healthcare Clinics: [facility] [address] [facility], [address] [place]. [place] ; [facility] Clinic [address] [facility] [address] [place] [address]; [facility] 10075 [facility]. [place] [address]289 [phone]) [phone] Counseling--[facility]patient [facility] [address] [facility], [place] [address] (Specializes in in-depth psychotherapy for emotional distress: anxiety, depression, interpersonal conflicts, life transitions, childhood abuse) [facility] [address] [place] [address] (Assist with solving problem marital difficulties, separation & divorce, aging parents, & grief, chronic & terminal illness) [facility] [address] [place] [address] (Deal with loss & grief, anxiety, marital difficulties) Homebound/Mental Health Services [address], [address] [place], [place] [address] (Provide in-home mental services to people who are incapable of leaving their homes) Organization for Needs of the Elderly Senior Service/Resource Center [address] [place] [address] [facility] [address]. [place], [place] [phone] PSYCHIATRIC OUTPATIENT SERVICES [facility] Partial Hospitalization and Intensive Outpatient Program (Managed Care and Pearl Only)[address]. [facility] [phone] [facility] Partial Hospitalization and Outpatient [id number] [address] [place], [place] [phone] [facility] Partial Hospitalization and Outpatient [id number] [place] Aishwarya [facility]. [place], [place] [phone] [facility] Health Center Pnd[address] [place], [place] [phone] [facility] Partial Hospitalization and Outpatient [id number] Emelita [facility] Juan Manuel Neff [phone] "
--- NOTE | 2020-12-07 13:37 | NUR ---
PATIENT ACCEPTED AT [facility], UNDER DR. MEJIA. REPORT TO BE GIVEN AT [phone] UNIT 2.
--- NOTE | 2020-12-07 13:41 | NUR ---
[facility] [id number] [phone] ABEBA WILL CALL WITH TRANSPORT INFO REF#[id number]
[2020-12-07 13:42] VITALS: BP 130/75
--- NOTE | 2020-12-07 13:59 | NUR ---
[facility] ETA 144
[2020-12-07] MEDS ORDERED: LORAZEPAM 1 MG TABLET PO ONE (14:00)
[2020-12-07] MEDS ORDERED: LORAZEPAM 1 MG TABLET ONE (14:12)
--- NOTE | 2020-12-07 14:46 | NUR ---
REPORT GIVEN TO JUSTINA HUNTLEY AT [facility].
--- NOTE | 2020-12-07 15:24 | NUR ---
REPORT GIVEN TO CRITICAL CARE PHYSICIAN ASSISTANT, PATIENT WILL BE TRANSFERRED TO [facility] IN STABLE CONDITION. BELONGINGS GIVEN TO PATIENT.
== END 2020-12-07 15:25 ==
LOC: ER 06:24
DX: R45.851 Suicidal ideations (principal); F25.0 Schizoaffective disorder, bipolar type; F41.9 Anxiety disorder, unspecified; Z79.899 Other long term (current) drug therapy; Z87.820 Personal history of traumatic brain injury; Z20.822 Contact with and (suspected) exposure to COVID-19
CPT/HCPCS: 36415; 80048; 80076; 80299; 80307; 80320; 81001; 85025; 87426; 99285; C9803; G0480

== ENCOUNTER 2020-12-14 19:39 | Emergency (ER) | payer OTHER ==
[~2020-12-14] VITALS: Ht 180.3 cm; Wt 99.8 kg
--- NOTE | 2020-12-14 20:10 | NUR ---
BIBSELF C/O NONRADIATING MIDSTERNAL CHEST PAIN X 3 HRS RHEUMATOLOGY NURSE. AND +SI PLAN TO OVERDOSE -HI. PT AOX4 RR EVEN AND UNLABROED. NO SOB NOTED. PT NOT DIAPHORETIC. NO ACUTE DISTRESS NOTED. PT STATES +SI PLAN TO OVERDOSE; - HI. PT WAITING FOR MD GAR.
--- NOTE | 2020-12-14 20:11 | NUR ---
URINE COLLECTED. SENT TO LAB
--- NOTE | 2020-12-14 20:21 | NUR ---
LAB WITH PT FOR BLOOD DRAW
[2020-12-14 20:49] LABS: BASOPHILS # (AUTO) 0.1 /CMM (0.0-0.2); EOSINOPHILS % (AUTO) 3.4 % (0.0-6.0); HEMATOCRIT 48 % (39-51); HEMOGLOBIN 15.8 g/dL (13.5-17.5); LYMPHOCYTES # (AUTO) 3.5 /CMM (0.8-4.8); MEAN CORPUSCULAR HGB CONC 33 g/dl (31.0-36.0); MEAN CORPUSCULAR VOLUME 99 fL (80-96); MONOCYTES # (AUTO) 0.9 /CMM (0.1-1.30); MONOCYTES % (AUTO) 9.9 % (2.0-12.0); NEUTROPHILS # (AUTO) 4.6 /CMM (1.8-8.9); NEUTROPHILS % (AUTO) 48.7 % (43.0-81.0); PLATELET COUNT (AUTO) 282 /CMM (150-450); WHITE BLOOD COUNT (AUTO) 9.5 K/uL (4.3-11.0)
[2020-12-14 21:06] LABS: ALANINE AMINOTRANSFERASE < 6 U/L (12-78); ALKALINE PHOSPHATASE 80 U/L (46-116); ASPARTATE AMINOTRANSFERASE 53 U/L (15-37); BILIRUBIN,TOTAL 0.2 mg/dL (0.2-1.0); CALCIUM, SERUM 9.4 mg/dL (8.5-10.1); CARBON DIOXIDE 22 mmol/L (21-32); CHLORIDE 104 mmol/L (98-107); CREATININE 0.9 mg/dL (0.6-1.3); GLUCOSE 136 mg/dL (74-106); POTASSIUM 4.2 mmol/L (3.5-5.1); SODIUM SERUM 138 mmol/L (136-145); TOTAL PROTEIN, SERUM 8.3 g/dL (6.4-8.2); UREA NITROGEN, BLOOD 15 mg/dL (7-18)
[2020-12-14 21:19] LABS: ACETAMINOPHEN < 0 ug/ml (10-30); ALCOHOL, BLOOD < 3 mg/dL (0-0)
--- NOTE | 2020-12-14 21:21 | NUR ---
LAB CALLED REGARDING NEGATIVE COVID RESULT.
[2020-12-14 21:30] LABS: ALBUMIN < 0.6 g/dL (3.4-5.0)
[2020-12-14 22:09] LABS: BILIRUBIN,URINE NEGATIVE (NEGATIVE); COLOR,URINE YELLOW (YELLOW); LEUKOCYTE ESTERASE ,URINE NEGATIVE (NEGATIVE); NITRITE, URINE NEGATIVE (NEGATIVE); PROTEIN,URINE NEGATIVE (NEGATIVE); UGLUCOSE NEGATIVE (NEGATIVE); UROBILINOGEN,URINE 0.2 EU/dL (0.2)
--- NOTE | 2020-12-14 23:11 | NUR ---
CLINICAL AND FACESHEET FAXED TO [facility] INTAKE FOR VOLUNTARY PSYCH ADMISSION.
--- NOTE | 2020-12-15 03:25 | NUR ---
TRANSFER INFORMATION: PT ACCEPTED AT [facility] ACCEPTING MD DEE/DAVEY PHONE# FOR REPORT EXT [phone]
--- NOTE | 2020-12-15 04:04 | NUR ---
[id number] CALLED FOR TRANSPORT [facility]
[2020-12-15 04:56] VITALS: BP 133/83
--- NOTE | 2020-12-15 04:57 | NUR ---
[facility] TRANSPORT AT BEDSIDE REPORT GIVEN TO EMT TRANSPORT.
--- NOTE | 2020-12-15 05:02 | NUR ---
REPORT GIVEN TO SANDER HUNTLEY FOR ERIC
== END 2020-12-15 05:18 ==
LOC: ER 19:42
DX: R45.851 Suicidal ideations (principal); R07.9 Chest pain, unspecified; F25.0 Schizoaffective disorder, bipolar type; F41.9 Anxiety disorder, unspecified; Z59.0 Homelessness; I49.3 Ventricular premature depolarization; R00.0 Tachycardia, unspecified
CPT/HCPCS: 36415; 71045; 80048; 80076; 80299; 80307; 80320; 81003; 84484; 85025; 87426; 93005; 99285; C9803; G0480

== ENCOUNTER 2021-01-11 14:51 | Emergency (ER) | payer OTHER ==
[~2021-01-11] VITALS: Ht 180.3 cm; Wt 99.8 kg
--- NOTE | 2021-01-11 14:51 | NUR ---
PT BIB SELF C/O SUICIDAL IDEATION "I WANT TO OD ON PILLS AND ALCOHOL" PT IS AAOX4, NOT IN RESPIRATORY DISTRESS, V/S STABLE, KEPT RESTED AND COMFORTABLE. SITTER AT BEDSIDE. WILL CONTINUE TO MONITOR.
--- NOTE | 2021-01-11 15:01 | NUR ---
SEEN AND EXAMINED BY .
[2021-01-11 15:53] LABS: BASOPHILS % (AUTO) 0.4 % (0.0-2.0); EOSINOPHILS % (AUTO) 1.5 % (0.0-6.0); HEMATOCRIT 47 % (39-51); HEMOGLOBIN 15.3 g/dL (13.5-17.5); LYMPHOCYTES % (AUTO) 18.4 % (20.0-44.0); MEAN CORPUSCULAR HGB CONC 33 g/dl (31.0-36.0); MEAN CORPUSCULAR VOLUME 98 fL (80-96); MONOCYTES # (AUTO) 0.8 /CMM (0.1-1.30); MONOCYTES % (AUTO) 7.5 % (2.0-12.0); NEUTROPHILS # (AUTO) 7.9 /CMM (1.8-8.9); NEUTROPHILS % (AUTO) 72.2 % (43.0-81.0); PLATELET COUNT (AUTO) 255 /CMM (150-450); RED BLOOD CELL COUNT(AUTO) 4.75 MIL/uL (4.5-6.0); WHITE BLOOD COUNT (AUTO) 10.9 K/uL (4.3-11.0)
[2021-01-11 16:06] LABS: ALANINE AMINOTRANSFERASE 36 U/L (12-78); ALBUMIN 3.8 g/dL (3.4-5.0); ALCOHOL, BLOOD < 3 mg/dL (0-0); ALKALINE PHOSPHATASE 98 U/L (46-116); ASPARTATE AMINOTRANSFERASE 27 U/L (15-37); BILIRUBIN,DIRECT 0.1 mg/dL (0.0-0.2); BILIRUBIN,TOTAL 0.3 mg/dL (0.2-1.0); CALCIUM, SERUM 9.9 mg/dL (8.5-10.1); CARBON DIOXIDE 26 mmol/L (21-32); CHLORIDE 101 mmol/L (98-107); GLUCOSE 100 mg/dL (74-106); POTASSIUM 4.5 mmol/L (3.5-5.1); SODIUM SERUM 138 mmol/L (136-145); TOTAL PROTEIN, SERUM 8.6 g/dL (6.4-8.2); UREA NITROGEN, BLOOD 18 mg/dL (7-18)
[2021-01-11 16:20] LABS: ACETAMINOPHEN < 0 ug/ml (10-30)
--- NOTE | 2021-01-11 16:27 | NUR ---
"SS Consult: SS Consult requested for SI w /plan & homelessness. The pt. is a 60 year old male. Per pt. he is having SI with plan to OD on drugs & ETOH since 2 days ago. Pt. is A&O X 4. Pt.s mood is depressed and makes appropriate eye contact. Per pt. he has been diagnosed with Schizoaffective disorder and is not on psychotropic medication at this time. Per pt. he has been experiencing homelessness since 2018. Per pt. he has a therapist, Matilda Butts who he speaks with on a weekly basis. Per pt., h receives food stamps, and GR. SW offered pt. voluntary psych placement for Tx. an pt. is agreeable. Plan: SW referred pt. to [facility] [[address] [place] [address] ] for inpatient psychiatric treatment. Patient signed homeless waiver & it was placed in the pt.s chart. CHRISTOS provided pt. with the following homeless resources, addiction resources & mental health resources & pt. accepted them: Substance Abuse resources provided included: [facility] Substance Abuse Self-Helpline ([facility]) ; CRI -HELP [address]32 [facility]. [place] [address] ; [facility] 99520 [facility] [address] ; [facility] Rehabilitation Program [address]164 [facility] [address] ; [facility] 400 [facility] [address] ; [facility] 4940 [facility] [address] ; [facility] 909 [facility] [address] ; [facility] Substance Abuse Helpline([facility] ; [facility] ; [facility] [place]; [facility] [place]; Cri-Help [place]; I-ADARP Inter Agency Drug Abuse Recovery Juan Manuel Neff; [facility]; [facility] Vera; [facility] [place]; [facility], [facility]. [facility]; Alcoholics Anonymous -SFV; Dk-Wmhm-Zrkxnps ; Marijuana Anonymous -SFV; Narcotics Anonymous www.na.org; Year-round shelters: [place] [address] [place], [place] [address] ; [facility] [facility] [place] [address] [place] [address]; [facility] Qvvflld0243 [facility] [address] Winter Shelters: [facility] Provider: [employer] [facility] [place] Address: [address] [place], [address] # of Beds: 47 Population Served: [facility] 6 | [facility] Jenniffer Grace Soldier Provider: Home at Last Address: [address], [address] # of Beds: 66 Population Served: [facility] TwtBks Soldier Provider: First to Serve Address: 22979 [facility], [address] # of Beds: 56 Population Served: [facility] Marcello Mercado [place] Provider: SSG/Ms. Marte House Address: [address] [facility], [address] # of Beds: 49 Population Served: [facility] 8 | [facility] Provider: First to Serve Address: [address] [facility], [address] # of Beds: 37 Population Served: [facility] Hygiene: [facility] [place] [facility]: [address] Van Dynebhupendra Leroy [place] ; [facility] Hospital[facility] [address] [place] ; [facility] [address], [place] . Food Resources: [place] [facility] at [facility]- [address]. [place]; Meet Each Need with Dignity ([facility]) [address]489 [facility] Hospital[facility]org[facility] [place]; [facility] Food Pantry 2160 [facility]; [facility] 3582 [facility]. Mental Health resources provided: [facility] [address] [place] [address] ; [facility] Mental Health Center, Inc. [address] [facility] UN[address] 2, [place], [place] [address] ; [facility] Urgent Care Center [address] [place] [address] ; [facility] [address] [place], [place] [phone] Healthcare Clinics: [facility] 6551 [facility], [address] [place]. [place] ; [facility] Clinic [address] [facility] [address] [place] [address]; [facility] [address] [facility] [address] [phone]) [phone] Counseling--Outpatient [facility] 44[address] [facility], [place] [address] (Specializes in in-depth psychotherapy for emotional distress: anxiety, depression, interpersonal conflicts, life transitions, childhood abuse) [facility] [address] [place] [address] (Assist with solving problem marital difficulties, separation & divorce, aging parents, & grief, chronic & terminal illness) [facility] [address] [place] [address] (Deal with loss & grief, anxiety, marital difficulties) Homebound/Mental Health Services [address], [address] [place] [address] (Provide in-home mental services to people who are incapable of leaving their homes) Organization for Needs of the Elderly Senior Service/Resource Center [address] [place], [place] [phone] [facility] [address] SharmaJorgito [place]ullen [place] [phone] PSYCHIATRIC OUTPATIENT SERVICES [facility] Partial Hospitalization and Intensive Outpatient Program (Managed Care and Gates Only)17983 [place] TimboWellstar [facility] [phone] [facility] Partial Hospitalization and Outpatient [id number] [place], [place] [phone] [facility] Partial Hospitalization and Outpatient [id number] Juan Manuel CulverJorgito [place], [place] [phone] JUAN MANUEL ISHAN [facility] Mental Health [place] Srp[address] [place], [place] [phone] [facility] Juan Manuel Neff Partial Hospitalization and Outpatient [id number] [facility] EMELIA [phone] "
[2021-01-11 17:32] LABS: BILIRUBIN,URINE Negative (NEGATIVE); COLOR,URINE YELLOW (YELLOW); LEUKOCYTE ESTERASE ,URINE Negative (NEGATIVE); NITRITE, URINE Negative (NEGATIVE); PH,URINE 5.5 (5.0-8.0); PROTEIN,URINE 30 mg/dl (NEGATIVE); UGLUCOSE Negative (NEGATIVE); UROBILINOGEN,URINE 0.2 EU/dL (0.2)
[2021-01-11 17:36] LABS: BACTERIA,URINE Rare /HPF (None Seen); RBC,URINE NONE SEEN /HPF (0-2); SQUAMOUS EPITHELIAL CELL,UR Few /HPF (None Seen); WBC,URINE NONE SEEN /HPF (0-3)
--- NOTE | 2021-01-11 22:12 | NUR ---
TRANSFER INFO: [facility] ACCEPT[facility] BY DR FLOWERS/GINA, RN FOR REPORT [phone] EXT [phone]
--- NOTE | 2021-01-11 22:18 | NUR ---
[id number] BLS RES#[id number], ETA TO FOLLOW
--- NOTE | 2021-01-11 22:20 | NUR ---
[facility] ETA [phone]
--- NOTE | 2021-01-11 22:34 | NUR ---
REPORT GIVEN TO YUKO LEE FOR CONTINUITY OF CARE.
--- NOTE | 2021-01-12 00:32 | NUR ---
EXT [phone]
--- NOTE | 2021-01-12 01:00 | NUR ---
REPORT GIVEN TO [facility] FOR ERIC
[2021-01-12 01:05] VITALS: BP 117/80
--- NOTE | 2021-01-12 01:05 | NUR ---
PT TRANSFERRED TO [facility] IN STABLE CONDITION
== END 2021-01-12 01:08 ==
LOC: ER 14:51
DX: R45.851 Suicidal ideations (principal); F17.200 Nicotine dependence, unspecified, uncomplicated; F25.0 Schizoaffective disorder, bipolar type; F41.9 Anxiety disorder, unspecified; Z87.820 Personal history of traumatic brain injury; Z20.822 Contact with and (suspected) exposure to COVID-19; Z59.0 Homelessness
CPT/HCPCS: 36415; 80048; 80076; 80299; 80307; 80320; 81001; 85025; 87426; 99285; C9803; G0480

== ENCOUNTER 2021-01-25 19:25 | Emergency (ER) | payer OTHER ==
[~2021-01-25] VITALS: Ht 180.3 cm; Wt 99.8 kg
--- NOTE | 2021-01-25 19:25 | NUR ---
TO ER BED C/O SI WITH PLAN TO OD ON PILLS AND ALCOHOL. PT DENIES HI REQUESTING VOLUNTARY ADMISSION TO [facility]. PT AAOX4 NO ACUTE DISTRESS NOTED, RESP EVEN AND UNLABORED. PT CALM AND COOPERATIVE AT THIS TIME. [facility] ER MD GAR.
--- NOTE | 2021-01-25 19:35 | NUR ---
URINE SAMPLE COLLECTED AND SENT TO LAB.
--- NOTE | 2021-01-25 19:58 | NUR ---
GENERATING STATION MECHANIC AT BEDSIDE FOR BLOOD DRAW.
[2021-01-25 20:16] LABS: BASOPHILS % (AUTO) 0.8 % (0.0-2.0); EOSINOPHILS % (AUTO) 3.3 % (0.0-6.0); HEMATOCRIT 43 % (39-51); HEMOGLOBIN 14.5 g/dL (13.5-17.5); LYMPHOCYTES # (AUTO) 1.9 /CMM (0.8-4.8); LYMPHOCYTES % (AUTO) 31.9 % (20.0-44.0); MEAN CORPUSCULAR HGB CONC 34 g/dl (31.0-36.0); MEAN CORPUSCULAR VOLUME 96 fL (80-96); MONOCYTES # (AUTO) 0.7 /CMM (0.1-1.30); MONOCYTES % (AUTO) 11.2 % (2.0-12.0); NEUTROPHILS # (AUTO) 3.2 /CMM (1.8-8.9); NEUTROPHILS % (AUTO) 52.8 % (43.0-81.0); PLATELET COUNT (AUTO) 182 /CMM (150-450); RED BLOOD CELL COUNT(AUTO) 4.53 MIL/uL (4.5-6.0)
[2021-01-25 20:19] LABS: BILIRUBIN,URINE Negative (NEGATIVE); COLOR,URINE YELLOW (YELLOW); LEUKOCYTE ESTERASE ,URINE Negative (NEGATIVE); NITRITE, URINE Negative (NEGATIVE); PH,URINE 5.5 (5.0-8.0); PROTEIN,URINE 100 mg/dl (NEGATIVE); UGLUCOSE Negative (NEGATIVE); UROBILINOGEN,URINE 0.2 EU/dL (0.2)
[2021-01-25 20:26] LABS: CALCIUM, SERUM 9.4 mg/dL (8.5-10.1); CARBON DIOXIDE 27 mmol/L (21-32); CHLORIDE 101 mmol/L (98-107); GLUCOSE 97 mg/dL (74-106); POTASSIUM 4.2 mmol/L (3.5-5.1); SODIUM SERUM 137 mmol/L (136-145); UREA NITROGEN, BLOOD 19 mg/dL (7-18)
[2021-01-25 20:32] LABS: ALANINE AMINOTRANSFERASE 37 U/L (12-78); ALCOHOL, BLOOD < 3 mg/dL (0-0); ALKALINE PHOSPHATASE 90 U/L (46-116); ASPARTATE AMINOTRANSFERASE 29 U/L (15-37); BILIRUBIN,DIRECT 0.1 mg/dL (0.0-0.2); BILIRUBIN,TOTAL 0.4 mg/dL (0.2-1.0); TOTAL PROTEIN, SERUM 8.1 g/dL (6.4-8.2)
[2021-01-25 20:33] LABS: BACTERIA,URINE Rare /HPF (None Seen); SQUAMOUS EPITHELIAL CELL,UR Few /HPF (None Seen); WBC,URINE NONE SEEN /HPF (0-3)
[2021-01-25 20:35] LABS: ACETAMINOPHEN < 2 ug/ml (10-30)
--- NOTE | 2021-01-25 21:23 | NUR ---
CLINICAL AND FACESHEET FAXED TO [facility] INTAKE FOR VOLUNTARY PSYCH ADMISSION.
--- NOTE | 2021-01-25 23:52 | NUR ---
PT GOT ACEPTED AT [facility] BY DR MEJIA IN UNIT 1. PLEASE ARRANGE TRANSPORTATION AFTER 2AM.
--- NOTE | 2021-01-26 00:39 | NUR ---
PER [id number] DISPATCH UNABLE TO ARRANGE TRANSPORT AT THIS TIME DUE TO SYSTEM IS DOWN AND WILL ARRANGE TRANSPORT WHEN SYSTEM COMES BACK UP IN 1 HOUR.
--- NOTE | 2021-01-26 02:05 | NUR ---
PER CALL THE CAR DISPATCH, SYSTEM STILL DOWN AT THIS TIME
--- NOTE | 2021-01-26 02:41 | NUR ---
TRANSPORT CALLED ([facility]) 75-90MIN ETA.
--- NOTE | 2021-01-26 03:08 | NUR ---
PT ASLEEP, NO ACUTE DISTRESS NOTED, RESP EVEN AND UNLABORED. CALL LIGHT WIHTIN REACH. WILL CONTINUE TO MONITOR PT. 1:1 SITTER AT BEDSIDE FOR PT SAFETY.
[2021-01-26 03:20] VITALS: BP 136/82
--- NOTE | 2021-01-26 03:57 | NUR ---
REPORT CALLED TO DOMENICO DIEGO.
== END 2021-01-26 04:00 ==
LOC: ER 19:30
DX: R45.851 Suicidal ideations (principal); Z20.822 Contact with and (suspected) exposure to COVID-19; G40.909 Epilepsy, unspecified, not intractable, without status epilepticus; Z79.899 Other long term (current) drug therapy; F25.0 Schizoaffective disorder, bipolar type; F41.9 Anxiety disorder, unspecified; Z87.820 Personal history of traumatic brain injury
CPT/HCPCS: 36415; 80048; 80076; 80143; 80307; 80320; 81001; 85025; 87426; 99285; C9803; G0480

== ENCOUNTER 2021-02-03 13:47 | Emergency (ER) | payer OTHER ==
[~2021-02-03] VITALS: Ht 180.3 cm; Wt 99.8 kg
--- NOTE | 2021-02-03 14:09 | NUR ---
+SI, no specific plan, voluntary admission to [facility]. Patient a/ox4, breathing even and unlabored, no sob noted, changed into a gown. Sitter at bedside for safety. Called security for wanding.
[2021-02-03] MEDS ORDERED: LORAZEPAM 1 MG TABLET ONE (14:21)
[2021-02-03] MEDS ORDERED: LORAZEPAM 1 MG TABLET PO ONE (14:30)
[2021-02-03 14:53] LABS: BASOPHILS % (AUTO) 0.4 % (0.0-2.0); EOSINOPHILS % (AUTO) 0.4 % (0.0-6.0); HEMATOCRIT 44 % (39-51); HEMOGLOBIN 14.7 g/dL (13.5-17.5); LYMPHOCYTES # (AUTO) 2.3 /CMM (0.8-4.8); LYMPHOCYTES % (AUTO) 28.9 % (20.0-44.0); MEAN CORPUSCULAR HGB CONC 34 g/dl (31.0-36.0); MEAN CORPUSCULAR VOLUME 96 fL (80-96); MONOCYTES # (AUTO) 1.2 /CMM (0.1-1.30); MONOCYTES % (AUTO) 14.8 % (2.0-12.0); NEUTROPHILS # (AUTO) 4.4 /CMM (1.8-8.9); NEUTROPHILS % (AUTO) 55.5 % (43.0-81.0); PLATELET COUNT (AUTO) 229 /CMM (150-450); RED BLOOD CELL COUNT(AUTO) 4.55 MIL/uL (4.5-6.0); WHITE BLOOD COUNT (AUTO) 7.9 K/uL (4.3-11.0)
[2021-02-03 15:02] LABS: CALCIUM, SERUM 8.9 mg/dL (8.5-10.1); CARBON DIOXIDE 19 mmol/L (21-32); CHLORIDE 97 mmol/L (98-107); CREATININE 1.1 mg/dL (0.6-1.3); GLUCOSE 124 mg/dL (74-106); POTASSIUM 3.7 mmol/L (3.5-5.1); SODIUM SERUM 133 mmol/L (136-145); UREA NITROGEN, BLOOD 20 mg/dL (7-18)
[2021-02-03 15:09] LABS: ALANINE AMINOTRANSFERASE 47 U/L (12-78); ALCOHOL, BLOOD 6 mg/dL (0-0); ALKALINE PHOSPHATASE 98 U/L (46-116); ASPARTATE AMINOTRANSFERASE 55 U/L (15-37); BILIRUBIN,DIRECT 0.3 mg/dL (0.0-0.2); BILIRUBIN,TOTAL 1.2 mg/dL (0.2-1.0); TOTAL PROTEIN, SERUM 8.7 g/dL (6.4-8.2)
[2021-02-03 15:12] LABS: ACETAMINOPHEN < 2 ug/ml (10-30)
[2021-02-03 15:34] LABS: BILIRUBIN,URINE SMALL (NEGATIVE); COLOR,URINE DARK YELLOW (YELLOW); LEUKOCYTE ESTERASE ,URINE Negative (NEGATIVE); NITRITE, URINE Negative (NEGATIVE); PROTEIN,URINE 30 mg/dl (NEGATIVE); UGLUCOSE Negative (NEGATIVE)
[2021-02-03 15:40] LABS: BACTERIA,URINE None seen /HPF (None Seen); MUCUS,URINE Few /LPF (None Seen); RBC,URINE 0-2 /HPF (0-2); SQUAMOUS EPITHELIAL CELL,UR Few /HPF (None Seen); URINE AMORPHOUS URATE Few /HPF (None Seen); WBC,URINE 0-2 /HPF (0-3)
--- NOTE | 2021-02-03 15:55 | NUR ---
SS Consult: SS Consult requested for SI & Homelessness. The pt. is 60 year old male who presents to the ED with C/O SI w/plan to "OD on pills and alcohol". The pt. appears disheveled, face flushed A&O X4 and makes good eye contact. Pt.'s mood is depressed with distressed affect. The pt. stated SI began a few days ago. Pt. states he has a Hx. of Schizoaffective Disorder and is not currently on any psychotropic medications. Pt. states he is experiencing homeless. Pt. states he gets assistance from [employer] for meals, showers etc. Pt. states he receives food stamps, and GR. Pt. denies HI and denies hallucinations. Per pt. he drinks 1 bottle of wine about 3 x /week and uses Meth with friends. CHRISTOS offered pt. voluntary admission at a psychiatric hospital for treatment and pt. is agreeable. Plan: CHRISTOS referred pt. to [facility] [[address] [place] [address] FAX:[phone]] for inpatient psychiatric treatment. Patient signed homeless waiver & it was placed in the pt.'s chart. CHRISTOS provided pt. with the following homeless resources and pt. accepted them: Substance Abuse resources provided included: [facility] Substance Abuse Self-Helpline ([facility]) ; CRI -HELP [address] [facility]. [place] [address] ; [facility] [address] [facility] [address] ; 5min [facility], [place] [facility] [address] [facility] [address] ; [facility] [address] [facility] [address] ; [facility] 4940 [facility] [address] ; [facility] [address] [facility] [phone] ; [facility] Substance Abuse Helpline([facility] [place] ; [facility] ; [facility]; [facility] [place]; [facility] [place]; [facility] Juan Manuel Neff; [facility] [place]; [facility] [place]; [facility]; [facility]'s [facility] Romulo Jj; Alcoholics Anonymous -SFV; Pj-Ufwa-[place] ; Marijuana Anonymous -SFV; Narcotics Anonymous www.na.org; Year-round shelters: [place] [address] [place], [place] [phone] ; [facility] [place] [address] [place] [address]; [facility] Bmoxsls2300 [facility] [address] Winter Shelters: Aliya Jj Provider: [employer] [facility] [place] Address: [address] [place], [address] # of Beds: 47 Population Served: [facility] 6 | [facility] Jenniffer Grace [place] Provider: Home at Last Address: [address], [address] # of Beds: 66 Population Served: [facility] Wordy [place] Provider: First to Serve Address: [address] [facility], [address] # of Beds: 56 Population Served: [facility] Jj Provider: SS[facility]ar[facility] Address: [address] [facility], [address] # of Beds: 49 Population Served: [facility] 8 | [facility] Provider: First to Serve Address: [facility], [address] # of Beds: 37 Population Served: [facility]: [facility]: [address] Jack Sharma. [place] ; [facility] [address] [facility] ; [facility] 6906 [facility] . Food Resources: [place] [facility] at [facility]- [address] W[place]; Meet Each Need with Dignity ([facility]) [address] [facility]; [facility] Food Pantry 3635 [facility]; [facility] 6580 [facility]. Mental Health resources provided: [facility] [address] [place], [place] [address] ; [facility] [address] [facility] [address], [place], [place] [phone] ; [facility] [address] [facility] [place], [place] [phone] ; [facility] [address] [place], [place] [phone] Healthcare Clinics: [facility] [address] [facility], [address] [place]. [place] ; [facility] [address] [facility] [address] [place] [address]; [facility] [address] [address] [place]. [place] [phone] Counseling--Outpatient [facility] [address] [facility], [place] [address] (Specializes in in-depth psychotherapy for emotional distress: anxiety, depression, interpersonal conflicts, life transitions, childhood abuse) [facility] [address] [place], [place] [phone] (Assist with solving problem marital difficulties, separation & divorce, aging parents, & grief, chronic & terminal illness) [facility] [address] [place] [address] (Deal with loss & grief, anxiety, marital difficulties) Homebound/Mental Health Services [address], [address] [place], [place] [address] (Provide in-home mental services to people who are incapable of leaving their homes) [facility] of [facility] Elderly Senior Service/Resource Center [address] [place] [address] [facility] [address] [facility] [place] [address] PSYCHIATRIC OUTPATIENT SERVICES [facility] Partial Hospitalization and Intensive Outpatient Program (Managed Care and Sob[place]ki Only)[address]67 Abelardo Izquierdo. [facility] [phone] [facility] Partial Hospitalization and Outpatient Hvyngky64397 [address] [place], [place] [phone] [facility] Partial Hospitalization and Outpatient Fonybdq5189 [facility] [place], [place] [phone] [facility] Wif[address] [place], [place] [phone] [facility] Aishwarya Partial Hospitalization and Outpatient [id number] [facility] Juan Manuel Neff[place], [phone]
--- NOTE | 2021-02-03 16:17 | NUR ---
CHRISTOS faxed completed labs, COVID test result, and medical clearance note to [facility] [[facility] [place] [address] FAX:[phone]] for inpatient psychiatric treatment.
--- NOTE | 2021-02-03 21:28 | NUR ---
TRANSFER INFORMATION: PT ACCEPTED AT [facility] ISIDRA DECKER ACCEPTING MD MEJIA PHONE NUMBER FOR REPORT
--- NOTE | 2021-02-03 21:31 | NUR ---
BLANCA CALL THE CAR CALL INITIATED.
--- NOTE | 2021-02-03 22:07 | NUR ---
ETA 1576 VERITO HARRIS #[id number]
[2021-02-03 22:43] VITALS: BP 137/64
--- NOTE | 2021-02-03 22:43 | NUR ---
REPORT CALLED TO DOMENICO PARRA.
--- NOTE | 2021-02-03 23:55 | NUR ---
[facility] AT BEDSIDE FOR TRANSPORT TO [facility].
== END 2021-02-03 23:56 ==
LOC: ER 13:51
DX: R45.851 Suicidal ideations (principal); F15.10 Other stimulant abuse, uncomplicated; R00.2 Palpitations; R00.0 Tachycardia, unspecified; F25.0 Schizoaffective disorder, bipolar type; F41.9 Anxiety disorder, unspecified; Z79.899 Other long term (current) drug therapy; Z87.820 Personal history of traumatic brain injury; Z20.822 Contact with and (suspected) exposure to COVID-19
CPT/HCPCS: 36415; 71045; 80048; 80076; 80143; 80307; 80320; 81001; 84484; 85025; 87426; 93005; 99285; C9803; G0480